=== PATIENT | female | born 1945 | race Caucasian/White ===

== ENCOUNTER 2016-12-30 22:26 | Emergency (ER) | payer OTHER, BC ==
[~2016-12-30] VITALS: Ht 160 cm; Wt 60.0 kg
[2016-12-30] MEDS ORDERED: KEFLEX500 MG PO (23:16)
[2016-12-30] MEDS ORDERED: PREDNISONE10 MG PO (23:16)
[2016-12-31 00:04] VITALS: BP 179/80
[2016-12-31] MEDS ORDERED: INSULIN PUMP (00:04)
== END 2016-12-31 00:04 | disposition home or self-care (01) ==
LOC: EME 22:26
DX: S50.862A Insect bite (nonvenomous) of left forearm, initial encounter (principal); W57.XXXA Bitten or stung by nonvenomous insect and other nonvenomous arthropods, initial encounter; E10.9 Type 1 diabetes mellitus without complications; Z79.4 Long term (current) use of insulin; Z96.41 Presence of insulin pump (external) (internal); Z88.8 Allergy status to other drugs, medicaments and biological substances; Z87.891 Personal history of nicotine dependence
CPT/HCPCS: 99281; 99284